=== PATIENT | male | born 1960 | race Caucasian/White ===

== ENCOUNTER 2020-07-26 15:37 | Emergency (ER) | payer OTHER, SELFPAY ==
[2020-07-26] VITALS (10 sets, daily range): BP systolic 133–150; BP diastolic 81–93; PULSE 69–76; RESP 14–24; TEMP 36.4; O2SAT 94–98
--- NOTE | ~2020-07-26 | XR_ITS ---
EXAMINATION: XR chest 2V DATE: 07/26/2020 18:30 INDICATION: 2 days of chest pain and one day of palpitations TECHNIQUE: PA and lateral views of the chest were obtained. COMPARISON: Chest radiograph dated 11/15/2018 FINDINGS: The lungs remain clear with no focal airspace opacities, pulmonary edema, pleural effusion or pneumot horax. The cardiomediastinal silhouette is normal. Left clavicle fracture with plate and screw fixati on. Chronic T11 compression fracture. IMPRESSION: 1. No acute cardiopulmonary disease. Reviewed, dictated and finalized at location A. [employer]
--- NOTE | 2020-07-26 15:43 | ECG_ITS ---
Measurements Intervals [place] Rate: 70 P: 30 PA: 123 QRS: 37 QRSD: 89 T: 43 QT: 360 QTc: 390 Interpretive Statements SINUS RHYTHM EARLY PRECORDIAL R/S TRANSITION BORDERLINE ECG Electronically Signed On 07-26-2020 15:55:07 BODY RECALL INSTRUCTOR by Parker Berry D.O.
[2020-07-26 15:53] LABS: Basophils Absolute Auto 0.1 K/mm3 (0.0-0.1); Basophils Percent Auto 0.8 % (0.2-1.2); Eosinophils Absolute Auto 0.3 K/mm3 (0-0.3); Eosinophils Percent Auto 5.1 % (0-4.4); Hemoglobin 14.4 g/dL (14.0-18.0); Immature Granulocyte Absolute 0.01 K/mm3 (0.00-0.031); Immature Granulocyte Percent A 0.2 % (0-0.5); Lymphocytes Absolute Auto 1.74 K/mm3 (0.9-3.2); Lymphocytes Percent Auto 28.6 % (18.3-44.2); Mean Corpuscular HGB Conc 35.1 g/dl (32-36); Mean Corpuscular Hemoglobin 32.8 pg (26-34); Mean Corpuscular Volume 93.4 fl (80-100); Mean Platelet Volume 10.1 fl (7.4-10.4); Monocytes Absolute Auto 0.6 K/mm3 (0.1-0.6); Neutrophils Absolute Auto 3.4 K/mm3 (1.3-6.7); Neutrophils Percent Auto 56.3 % (45.5-73.1); Platelet Count Result 239 k/mm3 (150-375); Red Blood Count 4.39 M/mm3 (4.6-6.20); Red Cell Distribution Width 13.4 % (11.5-14.5); White Blood Count 6.1 K/mm3 (4.5-10.0)
[2020-07-26 16:04] LABS: Anion Gap 8 mmol/L (8-16); Blood Urea Nitrogen 17 mg/dL (9-20); Calcium 8.8 mg/dL (8.4-10.2); Carbon Dioxide 25 mmol/L (22-30); Chloride 105 mmol/L (98-107); Estimated CRCL calculation 108 ml/min; Estimated Glomerular Filt Rate > 60; Glucose 121 mg/dL (75-110); Prothrombin Time 14.1 Seconds (11.1-14.7); Sodium 138 mmol/L (137-145)
[2020-07-26 16:16] LABS: Troponin I < 0.012 ng/mL (0.000-0.034)
--- NOTE | 2020-07-26 17:49 | ED.CHESTPAIN ---
HPI - Chest Pain General Chief Complaint: Chest Pain Stated Complaint: chest pain Time Seen by Provider: 07/26/20 17:46 History of Present Illness HPI narrative: 59 yo male w/ h/o paroxysmal a-fib presents to the ED for chest pain. He had an episode of a-fib yesterday that was intermittent for about 8 hours. During that episode he began having dull right sided chest pain. The a-fib resolved spontaneously as did the pain. Around noon today the pain returned and has been constant ever since. It is mild and has no associated symptoms at this time. Related Data Home Medications Medication Instructions Recorded Confirmed albuterol mcg INHALATION 07/26/20 aspirin [Aspirin Low Dose] 81 mg PO DAILY 07/26/20 esomeprazole magnesium [Nexium] 40 mg PO DAILY 07/26/20 fexofenadine 180 mg PO DAILY 07/26/20 fluticasone propionate [Flonase] 1 spray INTRANASAL DAILY 07/26/20 meloxicam 15 mg PO DAILY 07/26/20 montelukast [Singulair] 10 mg PO DAILY 07/26/20 sotalol 80 mg PO BID 07/26/20 Allergies Allergy/AdvReac Type Severity Reaction Status Date / Time latex Allergy Intermediate Rash Verified 12/09/18 11:57 soap Allergy Unknown Verified 11/18/18 14:40 Review of Systems Review of Systems: All systems reviewed & are unremarkable except as noted in HPI and below Cardiovascular: Cardiovascular: Reports chest pain Respiratory: Respiratory: Denies dyspnea Gastrointestinal: Gastrointestinal: Denies nausea Musculoskeletal: Musculoskeletal: Denies back pain Neurologic: Reports system reviewed and no additional complaints, except as documented [facility] Past Medical History Medical History (Updated 07/26/20 @ 20:25 by Mukesh Kirkland MD) Paroxysmal atrial fibrillation Family History Family History (Updated 11/18/18 @ 14:39 by DOCTOR UNKNOWN) Father Family history of malignant neoplasm Mother Family history of malignant neoplasm Social History Social History Smoking status: Never smoker Alcohol intake: current Exam Const: General: healthy appearing, no acute distress and alert Orientation/consciousness: patient oriented x3 HENMT: Head: normal to inspection Neck: Neck: normal visual inspection and no lymphadenopathy Chest: Chest palpation & inspection: no tenderness Resp: Effort & Inspection: normal respiratory effort Auscultation: clear to auscultation bilaterally, no rales, no rhonchi and no wheezes Cardio: Jugular venous distension: no JVD Rate: regular rate Rhythm: regular rhythm Heart sounds: no murmurs GI: Inspection: non-distended GI Palp: Yes Soft to palpation and No Tenderness to palpation present (GI) Skin: General skin exam: normal color Neuro: General: patient oriented x3 and moves all extremities Speech: normal speech Extrem: General: no edema Psych: Appearance: well kempt Affect: normal affect Course Vital Signs Vital signs: Vital Signs Temperature 36.4 C L 07/26/20 15:39 Pulse Rate 76 07/26/20 15:39 Respiratory Rate 20 07/26/20 15:39 Blood Pressure 148/93 H 07/26/20 15:39 Pulse Oximetry 95 07/26/20 15:39 Temperature 36.4 C L 07/26/20 15:39 Pulse Rate 69 07/26/20 18:45 Respiratory Rate 20 07/26/20 18:45 Blood Pressure 150/81 H 07/26/20 18:16 Pulse Oximetry 94 07/26/20 18:45 MDM - Chest Pain Differential Diagnosis Differential diagnosis: Likely unstable angina pectoris, atypical chest pain, st elevation myocardial infarction and chest pain Medical Records Data Attestation: I reviewed the patient's medical records. Lab Data Attestation: I reviewed the patient's lab results. Result diagrams: 07/26/20 15:46 07/26/20 15:46 Labs: Lab Results 07/26/20 07/26/20 07/26/20 Range/Units 15:46 15:46 15:46 WBC 6.1 (4.5-10.0) K/mm3 RBC 4.39 L (4.6-6.20) M/mm3 Hgb 14.4 (14.0-18.0) g/dL Hct 41.0 L (42.0-52.0) % MCV 93.4 (80-100) fl MCH 32.8 (26-34) pg MCHC 35.1 (32-36
== END 2020-07-26 19:01 | disposition home or self-care (01) ==
PROVIDERS: Emergency Medicine; Emergency Provider Emergency Medicine
DX: R07.9 Chest pain, unspecified (principal); I48.0 Paroxysmal atrial fibrillation; Z79.82 Long term (current) use of aspirin; R94.31 Abnormal electrocardiogram [ECG] [EKG]
CPT/HCPCS: 36415; 71046; 80048; 84484; 85025; 85610; 85730; 93005; 99284

== ENCOUNTER 2021-08-20 07:22 | Emergency (ER) | payer BC, OTHER, SELFPAY ==
--- NOTE | ~2021-08-20 | XR_ITS ---
EXAMINATION: XR chest 2V 08/20/2021 08:10 INDICATION: Left lower pneumonia. PROCEDURE: 2 view chest COMPARISON: Comparison to multiple prior studies sequentially, with oldest reviewed study dated 09/2011. FINDINGS: The lungs are clear. The cardiomediastinal silhouette is within normal limits. There are no pleural effusions. There is no pneumothorax suspected. IMPRESSION: 1: NO ACUTE CARDIOPULMONARY DISEASE. Reviewed, dictated and finalized at location A. HONE OPERATOR
[2021-08-20 07:27] VITALS: BP 145/89; PULSE 81; RESP 17; TEMP 36.2; O2SAT 99
--- NOTE | 2021-08-20 07:41 | ECG_ITS ---
Measurements Intervals [place] Rate: 73 P: 16 MO: 129 QRS: 12 QRSD: 94 T: 19 QT: 349 QTc: 386 Interpretive Statements SINUS RHYTHM EARLY PRECORDIAL R/S TRANSITION BASELINE ARTIFACT- I, II, III, AVF, V1, V3-V6 BORDERLINE ECG Electronically Signed On 08-20-2021 7:48:58 COMPUTER ARTIST by Parker Berry D.O.
[2021-08-20 07:51] LABS: Basophils Percent Auto 0.5 % (0.2-1.2); Eosinophils Absolute Auto 0.1 K/mm3 (0-0.3); Eosinophils Percent Auto 2.1 % (0-4.4); Hematocrit 36.4 % (42.0-52.0); Immature Granulocyte Absolute 0.03 K/mm3 (0.00-0.031); Immature Granulocyte Percent A 0.5 % (0-0.5); Lymphocytes Absolute Auto 1.45 K/mm3 (0.9-3.2); Lymphocytes Percent Auto 23.7 % (18.3-44.2); Mean Corpuscular Hemoglobin 29.9 pg (26-34); Mean Corpuscular Volume 90.8 fl (80-100); Mean Platelet Volume 9.9 fl (7.4-10.4); Monocytes Absolute Auto 0.6 K/mm3 (0.1-0.6); Monocytes Percent Auto 9.2 % (2.6-8.5); Neutrophils Absolute Auto 3.9 K/mm3 (1.3-6.7); Platelet Count Result 185 k/mm3 (150-375); Red Blood Count 4.01 M/mm3 (4.6-6.20); Red Cell Distribution Width 15.2 % (11.5-14.5); White Blood Count 6.1 K/mm3 (4.5-10.0)
[2021-08-20 08:00] LABS: Alanine Aminotransferase 27 U/L (4-50); Albumin Level 4.1 g/dL (3.5-5.1); Alkaline Phosphatase 53 U/L (38-126); Anion Gap 3 mmol/L (8-16); Aspartate Amino Transferase 31 U/L (17-59); Bilirubin,Total 0.5 mg/dL (0.2-1.3); Blood Urea Nitrogen 20 mg/dL (9-20); Carbon Dioxide 28 mmol/L (22-30); Chloride 107 mmol/L (98-107); Estimated Glomerular Filt Rate > 60; Glucose 104 mg/dL (65-110); Lipase 117 U/L (23-300); Potassium 4.1 mmol/L (3.4-5.0); Sodium 138 mmol/L (137-145)
--- NOTE | 2021-08-20 08:01 | ED.GENADULT ---
HPI - General Adult General Chief complaint: Chest Pain Stated complaint: PNEUMONIA FEELING WORSE Time Seen by Provider: 08/20/21 07:28 Source: patient History of Present Illness HPI narrative: Patient is a 60 y/o male complaining of right upper chest pain for last 2 weeks. He states that his pain seems to be worse today. He describes it as an ache and sting sensation. He rates it as 3-4/10 currently. He states that deep breathing seems to make it worse. He has a cough. He has no fever or SOB. He states that he was seen at urgent care 2 weeks and prescribed with Doxycycline and Prednisone. His symptoms did not improve. Related Data Home Medications Medication Instructions Recorded Confirmed albuterol sulfate 90 mcg/actuation 2 puff INHALATION Q4H PRN g 08/15/21 08/15/21 aerosol inhaler aspirin 81 mg tablet,delayed 81 mg PO DAILY 08/15/21 08/15/21 release esomeprazole magnesium 40 mg 40 mg PO DAILY 08/15/21 08/15/21 capsule,delayed release fexofenadine 180 mg tablet 180 mg PO DAILY PRN 08/15/21 08/15/21 fluticasone propionate 50 1 spray INTRANASAL BID g 08/15/21 08/15/21 mcg/actuation nasal spray,suspension meloxicam 15 mg tablet 15 mg PO DAILY PRN 08/15/21 08/15/21 montelukast 10 mg tablet 10 mg PO DAILY 08/15/21 08/15/21 sotalol 80 mg tablet 80 mg PO BID 08/15/21 08/15/21 Allergies Allergy/AdvReac Type Severity Reaction Status Date / Time latex Allergy Intermediate Rash Verified 12/09/18 11:57 soap Allergy Unknown Hives Verified 08/20/21 07:33 Review of Systems Constitutional: Constitutional: Denies chills, Denies fever(s), Denies headache(s) and Denies weakness Eyes: Eyes: Denies blurry vision ENT: Denies headache(s) and Denies neck pain Cardiovascular: Cardiovascular: Reports chest pain and Denies dyspnea Respiratory: Respiratory: Reports cough and Denies dyspnea Gastrointestinal: Gastrointestinal: Denies abdominal pain, Denies diarrhea, Denies nausea and Denies vomiting Genitourinary: Genitourinary: Denies hematuria and Denies dysuria Musculoskeletal: Musculoskeletal: Denies back pain and Denies neck pain Neurologic: Denies headache(s) and Denies weakness [facility] Past Medical History Medical History BMI 33.0-33.9,adult Chronic left hip pain pseudotumor left Colon cancer screening normal colonoscopy at age 54 with recheck in 10 years Encounter for prostate cancer screening Encounter for wellness examination in adult Esophageal dilatation (~2010) Gastro-esophageal reflux disease without esophagitis History of esophageal stricture esophageal dilatation 2008 and 2010 History of fracture of clavicle (~2018) History of varicocele (~1989) Male erectile dysfunction, unspecified Mild intermittent asthma Paroxysmal atrial fibrillation Paroxysmal atrial fibrillation Pneumonia (~08/07/21) Patchy in from trait left lower lobe on chest x-ray 08/07/2021 Seasonal allergic rhinitis Surgical History Surgical History H/O hernia repair (~1974) H/O medial meniscus repair of left knee (~2010) History of arthroplasty of left hip (~2015) Family History Family History Father Family history of malignant neoplasm Mother Family history of malignant neoplasm Sibling Afib Social History Social History Smoking status: Never smoker Alcohol intake: current Drinks per week: 2 Alcohol use details: wine Substance use: never Substance use type: does not use Exam Const: General: no acute distress and well developed Orientation/consciousness: oriented to person, oriented to place, oriented to time and patient oriented x3 HENMT: Head: normocephalic Ears: external ears normal General nose exam: Normal external nose present Eyes: General: appearance normal, both eyes and all relate
[2021-08-20 08:04] LABS: Prothrombin Time 13.2 Seconds (11.1-14.7)
[2021-08-20 08:05] LABS: Partial Thromboplastin Time 28.5 SECONDS (22.3-36.8)
[2021-08-20 08:10] LABS: D Dimer 0.29 ug/mL (<0.48)
[2021-08-20 08:11] LABS: Troponin I < 0.012 ng/mL (0.000-0.034)
[2021-08-20 11:30] LABS: Troponin I < 0.012 ng/mL (0.000-0.034)
[2021-08-20 12:25] VITALS: BP 138/91; PULSE 74; RESP 16; O2SAT 97
== END 2021-08-20 12:25 | disposition home or self-care (01) ==
PROVIDERS: Emergency Provider Emergency Medicine; PCP Family Medicine
DX: R07.9 Chest pain, unspecified (principal); K21.9 Gastro-esophageal reflux disease without esophagitis; J45.20 Mild intermittent asthma, uncomplicated; I48.0 Paroxysmal atrial fibrillation; Z87.01 Personal history of pneumonia (recurrent); Z79.82 Long term (current) use of aspirin; Z96.642 Presence of left artificial hip joint; R94.31 Abnormal electrocardiogram [ECG] [EKG]
CPT/HCPCS: 36415; 71046; 80053; 83690; 84484; 85025; 85380; 85610; 85730; 93005; 99284

== ENCOUNTER 2023-08-01 16:31 | Outpatient (CLI) | payer BC, OTHER, SELFPAY ==
--- NOTE | ~2023-08-01 | CT_ITS ---
. EXAMINATION: CT abdomen pelvis wo con DATE: 08/01/2023 17:00 INDICATION: Right lower quadrant abdominal pain for one week TECHNIQUE: Computed tomography (CT) of the abdomen and pelvis was performed without intravenous contr ast. Automated exposure control and iterative reconstruction technique were employed. Exam dose: 143 1.46 mGy-cm total exam DLP. COMPARISON: None. FINDINGS: The lung bases are clear of infiltrate or consolidation. Normal heart size. No pericardial or pleural effusion. The liver, gallbladder, bile ducts, pancreas, pancreatic duct and spleen are unremarkable. Normal morphology of the adrenal glands. Approximately 1.8 cm probable mid lateral left renal cyst. No urinary tract calculus or hydroureteron ephrosis. The urinary bladder and prostate gland appear unremarkable. Normal caliber and mild atherosclerotic calcification of the abdominal aorta. No intraperitoneal or r etroperitoneal or pelvic mass lesion or adenopathy or ascites. The appendix is not identified. No bowel obstruction, bowel wall thickening, pneumatosis or intraperi toneal free air is detected. Small fat-containing umbilical hernia. Status post left total hip arthroplasty. There is osteoarthritis of the right hip joint. 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 Severe degenerative disc disease at L5-S1 and moderately severe degenerative disc disease at L4-5. Chronic moderate anterior wedge compression fracture deformity of T11 IMPRESSION: The appendix is not identified. No inflammatory changes noted in the right lower quadran t or elsewhere in the abdomen or pelvis 0.8 cm probable mid left renal cyst Bilateral L5 pars interarticularis defects with grade 1 anterolisthesis at L5-S1 Prominent degenerative disc disease at L4-5 and L5-S1 Likely old compression fracture T11 Reviewed, dictated and finalized at Location A. Reviewed, dictated and finalized at location L. DENTIAL ASSISTANT IMPRESSION: The appendix is not identified. No inflammatory changes noted in t he right lower quadrant or elsewhere in the abdomen or pelvis 0.8 cm probable mid left renal cyst Bilateral L5 pars interarticularis defects with grade 1 anterolisthesis at L5-S 1 Prominent degenerative disc disease at L4-5 and L5-S1 Likely old compression fracture T11
== END 2023-08-01 16:32 | disposition home or self-care (01) ==
PROVIDERS: PCP Family Medicine; Visit Provider Nurse Practitioner Family
DX: N28.1 Cyst of kidney, acquired (principal); M51.36 Other intervertebral disc degeneration, lumbar region; M51.34 Other intervertebral disc degeneration, thoracic region
CPT/HCPCS: 74176

== ENCOUNTER → 2024-05-19 10:41 | Outpatient (CLI) | payer BC, OTHER, SELFPAY ==
--- NOTE | ~2024-05-19 | XR_ITS ---
EXAMINATION: XR foot RT min 3V DATE: 05/19/2024 10:52 INDICATION: Right foot pain. TECHNIQUE: 4 views of right foot were obtained. COMPARISON: None. FINDINGS: Alignment is normal. No fracture. There is mild osteoarthritis of talonavicular joint. Ther e is an enthesophyte at plantar aspect of calcaneal tuberosity. IMPRESSION: 1. Mild osteoarthritis of talonavicular joint. Reviewed, dictated and finalized at location A. TBAND SEPARATOR
== END ==
LOC: EXPTROY 10:43
PROVIDERS: PCP Family Medicine; Visit Provider Family Medicine
DX: M19.071 Primary osteoarthritis, right ankle and foot (principal)
CPT/HCPCS: 73630

== ENCOUNTER 2024-10-31 15:40 | Emergency (ER) | payer BC, OTHER, SELFPAY ==
[2024-10-31 16:14] VITALS: BP 121/77; PULSE 53; RESP 16; TEMP 36.4; O2SAT 96
--- NOTE | 2024-10-31 16:25 | ECG_ITS ---
Test Date: 2024-10-31 16:43:06 Measurements Intervals [place] Rate: 50 P: 18 PA: 157 QRS: 5 QRSD: 85 T: 10 QT: 432 QTc: 397 Interpretive Statements SINUS BRADYCARDIA EARLY PRECORDIAL R/S TRANSITION BORDERLINE ECG No previous ECG available for comparison Electronically Signed On 11-01-2024 07:31:28 CDT by Parker Berry D.O.
--- NOTE | 2024-10-31 16:40 | ED.ABDPAIN ---
HPI - Abdominal Pain General Chief Complaint: Abdominal Pain Stated Complaint: UPPER ABD PAIN Time Seen by Provider: 10/31/24 16:18 Source: patient and RN notes reviewed Mode of arrival: ambulatory Limitations: no limitations History of Present Illness HPI narrative: Patient presents today with a 10-11 day history of epigastric pain and pressure radiating up the esophagus, worse over the last 2 days. He does have history of GERD for which he takes Nexium. He has also added Pepcid at night since symptom onset. Denies vomiting, shortness of breath, chest pain, or any additional symptoms. This discomfort has not prevented him from continuing to ride his bicycle for exercise Related Data Home Medications ?Medication ?Instructions ?Recorded ?Confirmed ?Last Taken ?Type aspirin 81 mg tablet,delayed 81 mg PO DAILY 08/15/21 05/19/24 Unknown History release (Lavelle Low Dose Aspirin) sotalol 80 mg tablet 80 mg PO BID 08/15/21 05/19/24 Unknown History acetaminophen PO 11/14/22 10/23/23 Unknown History esomeprazole magnesium 20 mg 20 mg PO DAILY 04/17/23 05/19/24 Unknown History tablet,delayed release (Nexium 24HR) Allergies Allergy/AdvReac Type Severity Reaction Status Date / Time latex Allergy Intermediate Rash Verified 09/04/23 09:58 soap Allergy Unknown Hives Verified 09/04/23 09:58 meloxicam AdvReac Intermediate Gastrointestinal Verified 09/04/23 09:58 Upset Review of Systems Review of Systems: CONSTITUTIONAL: Denies body aches, fever, chills, or sweats. EYES: Denies visual changes, redness, or discharge. ENT: Denies rhinorrhea, congestion, sore throat, or otalgia. CARDIOVASCULAR: Denies chest pain, palpitations, or edema. RESPIRATORY: Denies cough or dyspnea. GASTROINTESTINAL: Denies nausea, vomiting, or diarrhea.+ epigastric discomfort GENITOURINARY: Denies dysuria or hematuria. SKIN: Denies rash, itching, or wounds. MUSCULOSKELETAL: Denies back pain, joint pain, or myalgia. NEUROLOGIC: Denies headache, numbness, tingling, or weakness. PSYCH: Denies depression or anxiety. [facility] Past Medical History Medical History Chronic low back pain with left-sided sciatica Pain of right heel (~2023) plantar fasciitis right foot . X-ray of the right foot on 05/19/2024 reveals osteoarthritis and small heel spur. Acute low back pain with right-sided sciatica (~07/27/23) CT of the abdomen pelvis On 08/01/2023 revealed severe degenerative disc disease at L5-S1 with moderate severe degenerative disc disease at L4-L5 with chronic anterior wedge compression deformity of T11 and osteoarthritis of the right hip. Right groin pain CT of the abdomen and pelvis without contrast on 08/01/2023 revealed no intra-abdominal findings to correlate with pain. The patient had severe degenerative disc disease at L5-S1 with moderate to severe degenerative disc disease at L4-L5 with chronic anterior wedge deformity at T11. Right lower quadrant pain BMI 32.0-32.9,adult Acute non-recurrent maxillary sinusitis (~05/13/23) Acute bronchitis (~05/13/23) Chronic pain in right shoulder BMI 34.0-34.9,adult Bilateral cataracts treated surgically with upgraded lens implants 2022. COVID-19 (~09/04/22) Osteoarthritis of right knee BMI 31.0-31.9,adult Obesity (BMI 30.0-34.9) Tension headache, chronic (~09/29/21) Low iron (09/18/21) iron low at 34 on 09/18/2021 with hemoglobin 12.3 with normal vitamin B12 468 and folic acid greater than 24. Iron 148 with 41% saturation and ferritin slightly low at 21 with hemoglobin 14.4 on 10/24/2021.Hemoglobin 15.7 with MCV 92.7 on 12/28/2021. Iron 126 with 44% saturation and ferritin 52 with hemoglobin 15.8 on 04/12/2023. Iron 90 with 32% saturation and hemoglobin 15.6 on 05/15/2024. Anemia (08/20/21) hemoglobin 12.0 on 08/20/2021, decreased from 14.4 . Hemoglobin 14.4 on 10/24/2021. Hemoglobin 15.7 on 12/28/2021. Hemoglobin 15.8 on 04/12/2023. Hemoglobin normal at 15.6 with vitamin B12 559 and folic acid 24 and iron 90 on 05/15/2024. Encounter for wellness examination in adult Male erectile dysfunction, unspecified Total testosterone 414 with free testosterone 54.7 on 12/28/2021. History of esophageal stricture esophageal dilatation 2008 and 2010 Colon cancer screening normal colonoscopy at age 54 with recheck in 10 years. Normal colonoscopy 2021 with recheck in 5 years. Encounter for prostate cancer screening PSA normal at 0.45 on 12/28/2021. PSA 0.33 on 04/12/2023. PSA 0.43 on 05/15/2024. Chronic left hip pain pseudotumor left Paroxysmal atrial fibrillation Gastro-esophageal reflux disease without esophagitis BMI 33.0-33.9,adult Mild intermittent asthma Seasonal allergic rhinitis Pneumonia (~08/07/21) Patchy infiltrate left lower lobe on chest x-ray 08/07/2021 History of fracture of clavicle (~2018) Esophageal dilatation (~2010) History of varicocele (~1989) Surgical History Surgical History History of surgery on lower extremity vein removed from right leg- Apr 2023 History of total right knee replacement History of arthroplasty of left hip (~2015) H/O medial meniscus repair of left knee (~2010) H/O hernia repair (~1974) Family History Family History Father Family history of malignant neoplasm Mother Family history of malignant neoplasm Sibling Afib Social History Social History Smoking status: Never smoker Alcohol intake: current Alcohol use details: once a month wine Substance use: never Substance use type: does not use Lack of Transportation: No Lack of Food: Never True Current Housing: I Have Housing Concerned About Future Housing: No Difficulty Paying Gas/Electric Bills: No Difficulty Paying for Meds: No Currently Unemployed: No Education: Master's Degree or Higher Difficulty w/ Childcare or Family Care: No Comments At time of signature, I have reviewed and agree with nursing past medical, surgical, social and family history unless otherwise noted. Please see nursing chart for further information. There is no relevant family history pertinent to the presenting complaint Exam Narrative: GENERAL: Well-appearing, well-nourished, and in no acute distress. HEAD: Normocephalic, atraumatic. EYES: EOMI. No redness or drainage. Conjunctivae normal. ENT: Mucous membranes pink and moist. NECK: Normal AROM. CHEST: No respiratory distress. Clear to auscultation. HEART: Regular rate and rhythm. No murmur appreciated. ABDOMEN: Soft, , nondistended, normal active bowel sounds.+ mildly tender epigastrium without rebound or guarding. EXTREMITIES: Normal range of motion. No edema. SKIN: Warm, dry, no rash. Capillary refill normal. Normal skin turgor. NEURO: No focal deficits. Alert and oriented x3. Gait steady. PSYCH: Normal affect. No signs of depression or anxiety. Course Course Emergency Course: 1714- After GI cocktail, pain has decreased to 1/10. Level of Care: Express Care Visit Vital Signs Vital signs: Vital Signs Temperature 97.5 F L 10/31/24 16:14 Pulse Rate 53 L 10/31/24 16:14 Respiratory Rate 16 10/31/24 16:14 Blood Pressure 121/77 10/31/24 16:14 Pulse Oximetry 96 10/31/24 16:14 Temperature 97.5 F L 10/31/24 16:14 Pulse Rate 53 L 10/31/24 16:14 Respiratory Rate 16 10/31/24 16:14 Blood Pressure 121/77 10/31/24 16:14 Pulse Oximetry 96 10/31/24 16:14 Reviewed MDM - Abdominal Pain MDM Narrative Medical decision making narrative: EKG shows sinus bradycardia. Patient states this is normal for him. He does take a beta-deuce. Unable to review previous EKGs as they will not open. Pain decreased from 4/10 to 1/10 prior to discharge after GI cocktail. Patient will be prescribed some Carafate to treat his gastritis/esophagitis. Recommend PCP follow-up if symptoms continue to flare. Anticipatory guidance given. Differential Diagnosis Differential diagnosis: Likely other (GERD, esophagitis, gastritis) ECG Data EKG #1: Attestation: I personally reviewed and interpreted this ECG as follows: ECG completion date: 10/31/24 ECG completion time: 16:43 Prior ECG tracings: not available for review (would not open) Interpretation: Sinus bradycardia. Heart rate 50. PA interval 157. Patient on a beta deuce. Critical Care Time Critical Care Time Critical Care Time: No Discharge Plan Discharge Clinical Impression: Esophagitis Gastritis Qualifiers: Gastritis type: unspecified gastritis Chronicity: acute Gastritis bleeding: without bleeding Qualified Code(s): K29.00 - Acute gastritis without bleeding Patient Disposition: Home Condition: Stable Instructions: Diet for Stomach Ulcers and Gastritis (ED), GERD (Gastroesophageal Reflux Disease) (DC) Additional Instructions: Your symptoms are likely due to your acid reflux irritating the lining of your stomach and esophagus. Continue the Nexium and Pepcid. Take the Carafate as prescribed. Continue your dietary modifications as well. Make sure your sitting upright after eating for 2-3 hours before lying down to sleep. Follow-up with your PCP within 1 week if symptoms have not resolved. Your blood pressure was elevated above 120/80 today at Urgent Care. This puts you above the threshold for follow up. Please schedule a followup visit with your personal physician as soon as possible, for further evaluation and treatment. Even blood pressure exceeding 120/80 may indicate pre-hypertension. Patient Language: Georgian Prescriptions: New sucralfate [Carafate] 1 gram tablet 1 g PO Q6H PRN (Reason: acid reflux) Qty: 30 0RF No Action esomeprazole magnesium [Nexium 24HR] 20 mg tablet,delayed release (DR/EC) 20 mg PO DAILY Patient Comments: [id number] famotidine 20 mg tablet 20 mg PO QHS PRN (Reason: reflux) Qty: 90 3RF aspirin [Lavelle Low Dose Aspirin] 81 mg tablet,delayed release (DR/EC) 81 mg PO DAILY sotalol 80 mg tablet 80 mg PO BID acetaminophen PO albuterol sulfate 90 mcg/actuation HFA aerosol inhaler 2 puff inhalation Q4H PRN (Reason: shortness of breath or wheezing) Qty: 25.5 3RF amitriptyline 10 mg tablet 10 mg PO QHS PRN (Reason: insomnia) Qty: 90 3RF fexofenadine 180 mg tablet 180 mg PO DAILY PRN (Reason: allergies) Qty: 90 3RF fluticasone propionate 50 mcg/actuation spray,suspension 1 spray INTRANASAL BID Qty: 48 3RF montelukast [Singulair] 10 mg tablet 10 mg PO DAILY Qty: 90 3RF Follow-up/Referrals: Servando Pope MD [Primary Care Provider] - Time of Disposition: 17:30
[2024-10-31] MEDS: MAG HYDROX/AL HYDROX/SIMETH 30 ML UDC PO (17:01)
[2024-10-31] MEDS: LIDOCAINE 2% VISC SOLN 15 ML UDC 10 ML PO (17:01)
== END 2024-10-31 17:35 | disposition home or self-care (01) ==
PROVIDERS: Emergency Provider Nurse Practitioner; PCP Family Medicine
DX: K20.90 Esophagitis, unspecified without bleeding (principal); K29.00 Acute gastritis without bleeding; I48.0 Paroxysmal atrial fibrillation; K21.9 Gastro-esophageal reflux disease without esophagitis; E66.9 Obesity, unspecified; Z68.33 Body mass index [BMI] 33.0-33.9, adult; M17.11 Unilateral primary osteoarthritis, right knee; Z79.82 Long term (current) use of aspirin; Z86.16 Personal history of COVID-19
CPT/HCPCS: 93005; 93010; 99213; A9270; G0463